=== PATIENT | male | born 1950 | race Caucasian/White ===

== ENCOUNTER → 2016-10-22 | Outpatient (CLI) | payer MEDICARE ==
--- NOTE | 2016-10-22 12:26 | ECHOS ---
DATE OF SERVICE: 10/22/2016 TYPE OF REPORT: Stress Echocardiogram INDICATION: Abnormal EKG. BASELINE HEART RATE: 60 BASELINE BLOOD PRESSURE: 124/62 MAXIMUM HEART RATE: 138 MAXIMUM BLOOD PRESSURE: 85% MPHR: 130 100% MPHR: 153 METS: 10.3 MAX STAGE REACHED: III TOTAL EXERCISE TIME: 9 minutes Baseline EKG revealed a normal sinus rhythm without significant ST-T changes. Patient walked on standard Mitesh protocol for 9 minutes, achieved a maximal heart rate of 138 beats per minute. Developed fatigue, shortness of breath, but did not have any angina or arrhythmia. EKG revealed rare isolated PVCs. There was nonspecific ST segment changes without clear cut evidence of ischemia. Patient did not have angina. By EKG criteria, this is an unremarkable stress test with fair exercise capacity. Baseline echo images revealed normal wall motion and wall thickening of all segments. At peak exercise, there was good augmentation of left ventricular wall motion and wall thickening of all segments suggesting that there is no evidence of stress induced ischemia on this study. FINAL IMPRESSION: 1. Fair exercise capacity with a negative stress test by EKG criteria. 2. Normal stress echocardiogram. MARQUIS
--- NOTE | 2016-10-23 08:33 | ECHOF ---
Referral Reason:R94.31 abn ekg MEASUREMENTS -------- HEIGHT: 172.7 cm WEIGHT: 79.4 kg BP: 156/78 RVIDd: 3.7 cm (< 3.3) IVSd: 1.1 cm (0.6 - 1.1) LVIDd: 4.7 cm (3.9 - 5.3) LVPWd: 1.1 cm (0.6 - 1.1) IVSs: 1.5 cm LVIDs: 3.4 cm LVPWs: 1.4 cm LAESV Index (A-L): 13.71 ml/m Ao Diam: 3.7 cm (2.0 - 3.7) AV Cusp: 2.3 cm (1.5 - 2.6) LA Diam: 3.7 cm (2.7 - 3.8) MV E Jean Claude: 0.58 m/s MV DecT: 266 ms MV A Jean Claude: 0.64 m/s MV E/A Ratio: 0.91 RAP: 5.00 mmHg RVSP: 9.49 mmHg FINDINGS -------- Resting bradycardia (HR<60bpm). This was a technically adequate study. The left ventricular size is normal. Left ventricular wall thickness is normal. Overall left ventricular systolic function is normal with, an EF between 55 - 60 %. The right ventricle is moderately enlarged. Normal LA size by volume 22+/-6 ml/m2. RA appears enlarged. The aortic valve is trileaflet, and appears structurally normal. No aortic stenosis or regurgitation. The mitral valve leaflets are mildly thickened. There is trace mitral regurgitation. Trace tricuspid regurgitation present. Right ventricular systolic pressure is normal at < 35 mmHg. There is no evidence of pulmonary hypertension. The pulmonic valve is normal. The aortic root size is normal. Normal inferior vena cava with normal inspiratory collapse consistent with estimated right atrial pressure of 5 mmHg. The pericardium is normal. There is no pericardial effusion. CONCLUSIONS -------- 1. Resting bradycardia (HR<60bpm). 2. There is trace mitral regurgitation. 3. Trace tricuspid regurgitation present. 4. Right ventricular systolic pressure is normal at < 35 mmHg. 5. There is no evidence of pulmonary hypertension. 6. The aortic root size is normal. 7. There is no pericardial effusion. 8. This was a technically adequate study. 9. The left ventricular size is normal. 10. Overall left ventricular systolic function is normal with, an EF between 55 - 60 %. 11. The right ventricle is moderately enlarged. 12. Normal LA size by volume 22+/-6 ml/m2. 13. RA appears enlarged. 14. The aortic valve is trileaflet, and appears structurally normal. No aortic stenosis or regurgitation. 15. The mitral valve leaflets are mildly thickened. [employer] TECH[employer]ICAL OFFICER: Vladimir Mohr RDCS
== END | disposition home or self-care (01) ==
LOC: RADECHMAIN 08:22
PROVIDERS: ATTEND Family Medicine
DX: I08.1 Rheumatic disorders of both mitral and tricuspid valves (principal); I10 Essential (primary) hypertension; R94.31 Abnormal electrocardiogram [ECG] [EKG]
CPT/HCPCS: 93017; 93306; 93350